=== PATIENT | male | born 1955 | race African-American/Black ===

== ENCOUNTER 2019-10-30 09:00 | Emergency (ER) | payer MEDICARE, MEDICAID ==
[~2019-10-30] VITALS: Ht 177.8 cm; Wt 100.0 kg
[~2019-10-30 09:00] MED LIST: BENA40TA9 PO; GLYB5TAB7 PO; HYDR12.529 PO; METF-416 PO
[2019-10-30 13:27] VITALS: BP 158/77
== END 2019-10-30 13:29 | disposition home or self-care (01) ==
LOC: ER 09:00
DX: J40 Bronchitis, not specified as acute or chronic (principal); R05 Cough; E11.9 Type 2 diabetes mellitus without complications; I10 Essential (primary) hypertension
CPT/HCPCS: 71045; 99283

== ENCOUNTER 2019-11-18 11:17 | Emergency (ER) | payer MEDICARE, MEDICAID ==
[~2019-11-18] VITALS: Ht 177.8 cm; Wt 98.0 kg
[2019-11-18 15:42] VITALS: BP 142/75
== END 2019-11-18 15:54 | disposition home or self-care (01) ==
LOC: ER 13:40
DX: R05 Cough (principal); I10 Essential (primary) hypertension; E11.9 Type 2 diabetes mellitus without complications; Z79.899 Other long term (current) drug therapy
CPT/HCPCS: 71045; 99283

== ENCOUNTER 2020-05-18 18:47 | Inpatient (IN) | payer MEDICARE, MEDICAID ==
[~2020-05-18] VITALS: Ht 175.3 cm; Wt 90.7 kg
[2020-05-18] MEDS ORDERED: VANCOMYCIN 1 G PREMIX 200 ML IV ONE (21:00)
[2020-05-18] MEDS ORDERED: PIPERACILLIN/TAZ 3.375G PREMIX 50 ML IV ONE (21:00)
[2020-05-18 21:03] LABS: HEMATOCRIT. 36.6 % (42.0-52.0); HEMOGLOBIN. 12.1 g/dL (14.0-18.0); MEAN CORPUSCULAR HEMOGLOBIN 25.9 pg (28.0-32.0); MEAN PLATELET VOLUME 8.6 fl (7.4-10.4); PLATELET 240 x1000/uL (130-400); RED BLOOD CELL COUNT 4.69 mill/uL (4.7-6.1); RED CELL DISTRIBUTION WIDTH 12.7 % (11.6-14.6)
[2020-05-18 21:13] LABS: PROTHROMBIN TIME 10.9 sec (9.6-11.0)
[2020-05-18 21:20] LABS: CHLORIDE 90 mEq/L (98-107)
[2020-05-18 21:53] LABS: BG BASE EXCESS 7.4 mmol/L (-2.0-2.0); BG CARBOXYHEMOGLOBIN 0.4 % (0.5-1.5); BG DEOXYHEMOGLOBIN 9.7 % (0.0-5.0); BG FRACTION INSPIRED OXYGEN 28; BG HCO3 ACT 31.7 mmol/L (22.0-26.0); BG METHEMOGLOBIN 0.4 % (0.0-1.5); BG OXYGEN SATURATION 90.2 % (92.0-98.5); BG OXYHEMOGLOBIN 89.5 % (94.0-97.0); BG PCO2 43.5 mmHg (35.0-45.0); BG PO2 56.2 mmHg (75.0-100.0); BG SAMPLE SITE RIGHT RADIAL; BG TOTAL HEMOGLOBIN 12.2 g/dL (12.0-18.0); BG VENT MODE NASAL CANNULA
[2020-05-18] MEDS ORDERED: NA PHOS,M-B/NA PHOS,DI-BA ENEMA 118ML PR PRN (22:45)
[2020-05-18] MEDS ORDERED: IPRATROPIUM/ALBUTEROL 0.5-3(2.5)MG/3ML NEB NEB PRN (22:45)
[2020-05-18] MEDS ORDERED: MORPHINE SULFATE 2 MG/ML CPJ (NOT FOR IM USE) IV PRN (22:45)
[2020-05-18] MEDS ORDERED: DOCUSATE SODIUM 100MG CAPSULE PO PRN (22:45)
[2020-05-18] MEDS ORDERED: LORAZEPAM 2MG/ML CPJ IV PRN (22:45)
[2020-05-18] MEDS ORDERED: ONDANSETRON HCL 4MG/2ML INJ IV PRN (22:45)
[2020-05-18] MEDS ORDERED: GUAIFENESIN 200MG/10ML SUGAR FREE UDC PO PRN (22:45)
[2020-05-18] MEDS ORDERED: DEXTROSE 50% WATER 50ML SYRINGE IV PRN (22:45)
[2020-05-18] MEDS ORDERED: DIPHENHYDRAMINE 50MG/ML VIAL IV PRN (22:45)
[2020-05-18] MEDS ORDERED: HYDROCODONE/ACETAMINOPHEN 10/325MG TABLET PO PRN (22:45)
[2020-05-18] MEDS ORDERED: MAGNESIUM/ALUMINUM HYDROXIDE/SIMETHICONE 30ML UDC PO PRN (22:45)
[2020-05-18 23:00] LABS: CLARITY URINE CLEAR (CLEAR); COLOR URINE YELLOW (YELLOW); KETONES URINE NEGATIVE (NEGATIVE); LEUKOCYTE ESTERASE URINE NEGATIVE (NEGATIVE); NITRITE URINE NEGATIVE (NEGATIVE); OCCULT BLOOD URINE 2+ (NEGATIVE); PH URINE 6.5 (4.5-8.0); PROTEIN URINE 3+ (NEGATIVE)
[2020-05-18] MEDS ORDERED: CEFTRIAXONE 1 G PREMIX 50 ML IV SCH (23:00)
[2020-05-18] MEDS ORDERED: AZITHROMYCIN 500 MG in DEXT 5% WATER 250 ML IV SCH (23:00)
[2020-05-18 23:03] LABS: NUCLEATED RED BLOOD CELLS 5 /100 WBC; PLATELET ESTIMATE NORMAL
[2020-05-19] MEDS: HYDRALAZINE 20MG/ML VIAL IV PRN ×2 (03:05→09:09)
[2020-05-19 05:21] LABS: BASOPHILS % 0.6 % (0.0-2.0); EOSINOPHILS % 0.1 % (0.0-5.0); HEMATOCRIT. 33.7 % (42.0-52.0); HEMOGLOBIN. 11.2 g/dL (14.0-18.0); LYMPHOCYTES % 16.6 % (20.0-50.0); MEAN CORPUSCULAR VOLUME 78.2 fL (80.0-94.0); MONOCYTES % 6.8 % (2.0-8.0); NEUTROPHILS % 75.9 % (40.0-76.0); PLATELET 224 x1000/uL (130-400); RED BLOOD CELL COUNT 4.31 mill/uL (4.7-6.1); RED CELL DISTRIBUTION WIDTH 12.9 % (11.6-14.6)
[2020-05-19 05:34] LABS: CHLORIDE 94 mEq/L (98-107)
[2020-05-19] MEDS: SODIUM CHLORIDE 0.9% INJ 3ML FLUSH IVF SCH ×2 (06:22→14:33)
[2020-05-19] MEDS: BLOOD SUGAR DIAGNOSTIC STRIP TEST SCH ×4 (06:22→21:00)
[2020-05-19] MEDS ORDERED: INSULIN LISPRO 100 UNITS/ML SUBCUT SCH (07:00)
[2020-05-19] MEDS: CLONIDINE 0.1MG TABLET PO PRN (07:39)
[2020-05-19] MEDS ORDERED: POTASSIUM CHLORIDE 20MEQ TABLET SR PO SCH ×2 (09:00→14:00)
[2020-05-19] MEDS: ENOXAPARIN 40MG/0.4ML SYR SUBCUT SCH (09:08)
[2020-05-19] MEDS ORDERED: DEXTROSE 50% WATER 50ML SYRINGE IV PRN (09:15)
[2020-05-19] MEDS: INSULIN GLARGINE UD 100 UNITS/ML SYR SUBCUT SCH (09:25)
[2020-05-19] MEDS: INSULIN LISPRO 100 UNITS/ML SUBCUT SCH ×3 (13:00→21:00)
[2020-05-19] MEDS ORDERED: BENZONATATE 100MG CAPSULE PO PRN (13:15)
[2020-05-19] MEDS: ALBUTEROL 6.7GM HFA INHALER ORI SCH (18:55)
[2020-05-20 00:40] VITALS: BP 158/81
[2020-05-20] MEDS: AZITHROMYCIN 500 MG in DEXT 5% WATER 250 ML IV SCH ×2 (01:14→21:42)
[2020-05-20] MEDS: SODIUM CHLORIDE 0.9% INJ 3ML FLUSH IVF SCH ×4 (01:14→22:00)
[2020-05-20] MEDS: CEFTRIAXONE 1 G PREMIX 50 ML IV SCH ×2 (01:15→21:41)
[2020-05-20 04:00] VITALS: BP 158/63
[2020-05-20] MEDS: ALBUTEROL 6.7GM HFA INHALER ORI SCH ×2 (05:33→18:11)
[2020-05-20] MEDS: ACETAMINOPHEN 325MG TABLET PO PRN ×2 (05:35→13:16)
[2020-05-20 06:48] LABS: BASOPHILS % 0.7 % (0.0-2.0); EOSINOPHILS % 0.2 % (0.0-5.0); HEMATOCRIT. 32.8 % (42.0-52.0); HEMOGLOBIN. 10.9 g/dL (14.0-18.0); LYMPHOCYTES % 18.1 % (20.0-50.0); MEAN CORPUSCULAR HEMOGLOBIN 25.9 pg (28.0-32.0); MEAN CORPUSCULAR VOLUME 77.9 fL (80.0-94.0); MEAN PLATELET VOLUME 8.1 fl (7.4-10.4); MONOCYTES % 12.1 % (2.0-8.0); NEUTROPHILS % 68.9 % (40.0-76.0); PLATELET 261 x1000/uL (130-400); RED BLOOD CELL COUNT 4.21 mill/uL (4.7-6.1); RED CELL DISTRIBUTION WIDTH 12.6 % (11.6-14.6)
[2020-05-20 06:52] LABS: CHLORIDE 94 mEq/L (98-107)
[2020-05-20] MEDS: BLOOD SUGAR DIAGNOSTIC STRIP TEST SCH ×4 (07:15→21:19)
[2020-05-20 08:00] VITALS: BP 136/78
[2020-05-20] MEDS: ENOXAPARIN 40MG/0.4ML SYR SUBCUT SCH (08:20)
[2020-05-20] MEDS: INSULIN LISPRO 100 UNITS/ML SUBCUT SCH ×4 (08:21→21:43)
[2020-05-20] MEDS ORDERED: POTASSIUM CHLORIDE 20MEQ TABLET SR PO NR (09:00)
[2020-05-20] MEDS: BENAZEPRIL 10MG TABLET PO SCH (10:17)
[2020-05-20] MEDS: INSULIN GLARGINE UD 100 UNITS/ML SYR SUBCUT SCH (10:25)
[2020-05-20 12:00] VITALS: BP 131/92
[2020-05-20] MEDS: ENOXAPARIN 100MG/ML SYR SUBCUT SCH ×2 (13:13→21:42)
[2020-05-20] MEDS: DEXAMETHASONE 4MG TABLET PO SCH (13:13)
[2020-05-20 16:00] VITALS: BP 169/97
[2020-05-20] MEDS: CLONIDINE 0.1MG TABLET PO PRN (16:01)
[2020-05-20 20:00] VITALS: BP 162/90
[2020-05-21] VITALS: BP 177/95
[2020-05-21] MEDS: CLONIDINE 0.1MG TABLET PO PRN ×2 (01:03→08:21)
[2020-05-21] MEDS: ALBUTEROL 6.7GM HFA INHALER ORI SCH ×2 (01:04→06:00)
[2020-05-21 04:00] VITALS: BP 178/94
[2020-05-21] MEDS: SODIUM CHLORIDE 0.9% INJ 3ML FLUSH IVF SCH (06:00)
[2020-05-21 06:43] LABS: HEMATOCRIT. 36.7 % (42.0-52.0); HEMOGLOBIN. 12.2 g/dL (14.0-18.0); MEAN CORPUSCULAR HEMOGLOBIN 25.9 pg (28.0-32.0); MEAN CORPUSCULAR VOLUME 77.8 fL (80.0-94.0); MEAN PLATELET VOLUME 8.4 fl (7.4-10.4); PLATELET 323 x1000/uL (130-400); RED BLOOD CELL COUNT 4.72 mill/uL (4.7-6.1); RED CELL DISTRIBUTION WIDTH 12.9 % (11.6-14.6)
[2020-05-21] MEDS: BLOOD SUGAR DIAGNOSTIC STRIP TEST SCH (07:28)
[2020-05-21 08:00] VITALS: BP 190/103
[2020-05-21 08:20] LABS: CHLORIDE 95 mEq/L (98-107)
[2020-05-21] MEDS: BENAZEPRIL 10MG TABLET PO SCH (08:21)
[2020-05-21] MEDS: ENOXAPARIN 100MG/ML SYR SUBCUT SCH (08:21)
[2020-05-21] MEDS: DEXAMETHASONE 4MG TABLET PO SCH (08:24)
[2020-05-21] MEDS: INSULIN LISPRO 100 UNITS/ML SUBCUT SCH (08:24)
[2020-05-21] MEDS ORDERED: HYDRALAZINE HCL 50MG TABLET PO SCH (09:00)
[2020-05-21 09:40] VITALS: BP 122/79
[2020-05-21] MEDS: INSULIN GLARGINE UD 100 UNITS/ML SYR SUBCUT SCH (10:00)
[2020-05-21 20:25] LABS: NUCLEATED RED BLOOD CELLS 2 /100 WBC; PLATELET ESTIMATE NORMAL
== END 2020-05-21 10:45 | disposition left against medical advice (07) | DRG 871 ==
LOC: ER 18:47 → MICUSO 22:22 → EDBEDREQ 22:26 → EDBEDREQTM 22:26 → 7WST 05-19 20:57
PROVIDERS: ADMIT Internal Medicine; ATTEND Internal Medicine
DX: A41.89 Other specified sepsis (principal); U07.1 COVID-19; J96.01 Acute respiratory failure with hypoxia; J12.89 Other viral pneumonia; E46 Unspecified protein-calorie malnutrition; E87.1 Hypo-osmolality and hyponatremia; R65.20 Severe sepsis without septic shock; Z53.29 Procedure and treatment not carried out because of patient's decision for other reasons; E11.65 Type 2 diabetes mellitus with hyperglycemia; R74.0 Nonspecific elevation of levels of transaminase and lactic acid dehydrogenase [LDH]; E78.5 Hyperlipidemia, unspecified; E87.6 Hypokalemia; I10 Essential (primary) hypertension; E86.1 Hypovolemia; J20.8 Acute bronchitis due to other specified organisms; Z68.29 Body mass index [BMI] 29.0-29.9, adult; Z79.899 Other long term (current) drug therapy
CPT/HCPCS: 36415; 36600; 71045; 80048; 80053; 81003; 82375; 82805; 82962; 83036; 83605; 83615; 83880; 84145; 84484; 85025; 93005; 94640; 96365; 99285; J0360; J0456; J0696; J1650; J1815; J2543; J3370; J7060; J8540; U0003-CS